=== PATIENT | male | born 1965 | race African-American/Black ===

== ENCOUNTER 2018-02-20 13:48 | Emergency (ER) | payer SELFPAY ==
[~2018-02-20] VITALS: Ht 167.6 cm; Wt 75.0 kg
[2018-02-20] MEDS ORDERED: HYDROCHLOROTHIAZIDE 12.5MG CAPSULE PO ONE (14:45)
[2018-02-20] MEDS ORDERED: LIDOCAINE HCL/PF 1% 10 MG/ML 5ML VIAL IJ ONE (14:45)
[2018-02-20] MEDS ORDERED: LIDOCAINE HCL 1% 10 MG/ML 10ML VIAL ONE (15:07)
[2018-02-20 15:30] VITALS: BP 161/117
== END 2018-02-20 15:30 | disposition home or self-care (01) ==
LOC: ER 13:48
DX: M67.431 Ganglion, right wrist (principal); I10 Essential (primary) hypertension; F17.200 Nicotine dependence, unspecified, uncomplicated; Z98.890 Other specified postprocedural states
CPT/HCPCS: 20612; 99284; J3490

== ENCOUNTER 2019-09-22 05:24 | Emergency (ER) | payer BC ==
[~2019-09-22] VITALS: Ht 172.7 cm; Wt 77.0 kg
[~2019-09-22 05:24] MED LIST: HYDR-4134 PO
[2019-09-22 05:49] VITALS: BP 168/110
[2019-09-22 06:27] LABS: BASOPHILS % 1.2 % (0.0-2.0); EOSINOPHILS % 2.2 % (0.0-5.0); HEMATOCRIT. 48.7 % (42.0-52.0); HEMOGLOBIN. 15.9 g/dL (14.0-18.0); LYMPHOCYTES % 17.4 % (20.0-50.0); MEAN CORPUSCULAR VOLUME 70.7 fL (80.0-94.0); MEAN PLATELET VOLUME 9.9 fl (7.4-10.4); MONOCYTES % 7.8 % (2.0-8.0); NEUTROPHILS % 71.4 % (40.0-76.0); PLATELET 153 x1000/uL (130-400); RED BLOOD CELL COUNT 6.89 mill/uL (4.7-6.1); RED CELL DISTRIBUTION WIDTH 15.2 % (11.6-14.6)
[2019-09-22] MEDS ORDERED: FOLIC ACID 1 MG, THIAMINE HCL 100 MG, MVI, ADULT NO.1 10 ML in DEXTROSE 5% WATER 1,000 ML IV ONE ×4 (06:30)
[2019-09-22 06:33] LABS: CHLORIDE 110 mEq/L (98-107)
[2019-09-22 06:38] LABS: ETHANOL BLOOD 10 mg/dL
== END 2019-09-22 06:22 | disposition left against medical advice (07) ==
LOC: ER 05:24
DX: F10.129 Alcohol abuse with intoxication, unspecified (principal); I10 Essential (primary) hypertension; Y90.0 Blood alcohol level of less than 20 mg/100 ml
CPT/HCPCS: 36415; 80053; 80307; 80320; 80329; 85025; 99283; J3411; J3490; J7070; G0480

== ENCOUNTER 2019-09-22 09:41 | Emergency (ER) | payer BC ==
[~2019-09-22] VITALS: Ht 162.6 cm; Wt 73.0 kg
[2019-09-22 09:59] VITALS: BP 155/129
== END 2019-09-22 11:21 | disposition left against medical advice (07) ==
LOC: ER 10:19
DX: R42 Dizziness and giddiness (principal); Z53.21 Procedure and treatment not carried out due to patient leaving prior to being seen by health care provider

== ENCOUNTER 2020-05-21 19:10 | Emergency (ER) | payer BC ==
[~2020-05-21] VITALS: Ht 165.1 cm; Wt 76.8 kg
[2020-05-21] MEDS ORDERED: CLONIDINE 0.2MG TABLET PO ONE (19:30)
[2020-05-21 19:46] LABS: BASOPHILS % 0.3 % (0.0-2.0); EOSINOPHILS % 2.6 % (0.0-5.0); HEMATOCRIT. 49.6 % (42.0-52.0); MEAN CORPUSCULAR HEMOGLOBIN 22.3 pg (28.0-32.0); MEAN CORPUSCULAR VOLUME 69.5 fL (80.0-94.0); MEAN PLATELET VOLUME 10.3 fl (7.4-10.4); MONOCYTES % 12.2 % (2.0-8.0); NEUTROPHILS % 45.9 % (40.0-76.0); PLATELET 199 x1000/uL (130-400); RED BLOOD CELL COUNT 7.14 mill/uL (4.7-6.1); RED CELL DISTRIBUTION WIDTH 15.4 % (11.6-14.6)
[2020-05-21 19:51] LABS: CHLORIDE 108 mEq/L (98-107)
[2020-05-21 19:56] LABS: INR 1.1; PARTIAL THROMBOPLASTIN TIME 32.7 sec (23.4-31.0); PROTHROMBIN TIME 11.7 sec (9.6-11.0)
[2020-05-21 20:16] LABS: PLATELET ESTIMATE NORMAL
[2020-05-21] MEDS ORDERED: ASPIRIN 325MG EC TABLET PO ONE (22:15)
[2020-05-21 22:23] LABS: CLARITY URINE CLEAR (CLEAR); COLOR URINE YELLOW (YELLOW); KETONES URINE NEGATIVE (NEGATIVE); LEUKOCYTE ESTERASE URINE 2+ (NEGATIVE); NITRITE URINE NEGATIVE (NEGATIVE); OCCULT BLOOD URINE NEGATIVE (NEGATIVE); PH URINE 5.5 (4.5-8.0); PROTEIN URINE NEGATIVE (NEGATIVE); SPECIFIC GRAVITY URINE 1.023 (1.005-1.030); UROBILINOGEN URINE 0.2 E.U./dL (0.2-1.0)
[2020-05-21 22:37] LABS: *AMPHETAMINES SCREEN URINE NEGATIVE (NEGATIVE); *BARBITURATES SCREEN URINE NEGATIVE (NEGATIVE); *COCAINE SCREEN URINE NEGATIVE (NEGATIVE)
[2020-05-21 22:39] LABS: *BENZODIAZEPINES SCREEN URINE NEGATIVE (NEGATIVE); CANNABINOID URINE SCREEN NEGATIVE (NEGATIVE); METHADONE URINE SCREEN NEGATIVE (NEGATIVE); OPIATES URINE SCREEN NEGATIVE (NEGATIVE); PHENCYCLIDINE URINE SCREEN PRESUMTIVE POSITIVE (NEGATIVE)
[2020-05-22] MEDS ORDERED: CLONIDINE 0.1MG TABLET PO PRN (00:15)
[2020-05-22] MEDS ORDERED: MVI, ADULT NO.1 10 ML, FOLIC ACID 1 MG, THIAMINE HCL 100 MG in SODIUM CHLORIDE 0.9% 1,0... IV SCH ×4 (00:15)
[2020-05-22] MEDS ORDERED: SODIUM CHLORIDE 0.9% 1,000 ML IV SCH (00:15)
[2020-05-22] MEDS ORDERED: ONDANSETRON HCL 4MG/2ML INJ IV PRN (00:15)
[2020-05-22] MEDS ORDERED: ACETAMINOPHEN 325MG TABLET PO PRN ×2 (00:15)
[2020-05-22] MEDS ORDERED: DIPHENHYDRAMINE 50MG/ML VIAL IV PRN (00:15)
[2020-05-22 00:45] VITALS: BP 151/75
== END 2020-05-22 01:10 | disposition home or self-care (01) ==
LOC: ER 19:10 → EDBEDREQTM 22:18 → EDBEDREQ 22:18 → ER 05-22 01:10 → CANBEDREQ 05-22 09:09
DX: F16.10 Hallucinogen abuse, uncomplicated (principal); G93.49 Other encephalopathy; I10 Essential (primary) hypertension
CPT/HCPCS: 36415; 71045; 80053; 80305; 81003; 82962; 83880; 84443; 84484; 85025; 93005; 99285

== ENCOUNTER 2021-08-24 13:58 | Emergency (ER) | payer BC ==
[~2021-08-24] VITALS: Ht 165.1 cm; Wt 74.0 kg
[2021-08-24] MEDS ORDERED: MAGNESIUM/ALUMINUM HYDROXIDE/SIMETHICONE 30ML UDC PO STA (14:42)
[2021-08-24] MEDS ORDERED: ONDANSETRON 4MG ODT PO STA (14:42)
[2021-08-24 16:09] LABS: BASOPHILS % 1.7 % (0.0-2.0); EOSINOPHILS % 5.9 % (0.0-5.0); HEMATOCRIT. 48.2 % (42.0-52.0); HEMOGLOBIN. 15.8 g/dL (14.0-18.0); MEAN CORPUSCULAR HEMOGLOBIN 23.2 pg (28.0-32.0); MONOCYTES % 9.7 % (2.0-8.0); NEUTROPHILS % 32.7 % (40.0-76.0); PLATELET 160 x1000/uL (130-400); RED BLOOD CELL COUNT 6.79 mill/uL (4.7-6.1); RED CELL DISTRIBUTION WIDTH 15.5 % (11.6-14.6)
[2021-08-24 16:18] LABS: CHLORIDE 108 mEq/L (98-107)
[2021-08-24 17:02] VITALS: BP 147/92
== END 2021-08-24 17:03 | disposition home or self-care (01) ==
LOC: ER 13:58
DX: R10.33 Periumbilical pain (principal); R11.2 Nausea with vomiting, unspecified; Z87.891 Personal history of nicotine dependence; I10 Essential (primary) hypertension
CPT/HCPCS: 36415; 80053; 83690; 85025; 93005; 99284; Q0162

== ENCOUNTER 2022-07-19 11:56 | Emergency (ER) | payer BC ==
[~2022-07-19] VITALS: Ht 167.6 cm; Wt 77.0 kg
[2022-07-19 12:00] VITALS: BP 167/117
[2022-07-19] MEDS ORDERED: VISCOUS LIDOCAINE 2% 15 ML UDC PO STA (12:43)
[2022-07-19] MEDS ORDERED: FAMOTIDINE 20MG TABLET PO ONE (12:45)
[2022-07-19] MEDS ORDERED: MAGNESIUM/ALUMINUM HYDROXIDE/SIMETHICONE 30ML UDC PO ONE (12:45)
[2022-07-19 14:30] LABS: BASOPHILS % 0.3 % (0.0-2.0); HEMATOCRIT. 50.2 % (42.0-52.0); HEMOGLOBIN. 16.4 g/dL (14.0-18.0); LYMPHOCYTES % 40.4 % (20.0-50.0); MEAN CORPUSCULAR HEMOGLOBIN 23.1 pg (28.0-32.0); MEAN CORPUSCULAR VOLUME 70.3 fL (80.0-94.0); MEAN PLATELET VOLUME 9.5 fl (7.4-10.4); MONOCYTES % 7.6 % (2.0-8.0); NEUTROPHILS % 48.7 % (40.0-76.0); PLATELET 210 x1000/uL (130-400); RED BLOOD CELL COUNT 7.13 mill/uL (4.7-6.1); RED CELL DISTRIBUTION WIDTH 16.5 % (11.6-14.6)
[2022-07-19 14:39] LABS: CHLORIDE 106 mEq/L (98-107)
[2022-07-19] MEDS ORDERED: OMEP40CA20 PO (14:44)
[2022-07-19] MEDS ORDERED: SUCR1TAB MT (14:44)
== END 2022-07-19 15:00 | disposition home or self-care (01) ==
LOC: ER 11:56
DX: R10.13 Epigastric pain (principal); K21.9 Gastro-esophageal reflux disease without esophagitis; I10 Essential (primary) hypertension; Z79.899 Other long term (current) drug therapy
CPT/HCPCS: 36415; 76705; 80053; 85025; 99284